=== PATIENT | female | born 1945 | race Caucasian/White ===

== ENCOUNTER 2024-07-21 16:12 | Observation (INO) | payer MEDICARE ==
[2024-07-21 16:31] LABS: Appearance Clear (Clear); Bacteria Few /HPF (None Seen); Bilirubin Negative (Negative); Blood Negative (Negative); Epithelial Cells Few /HPF (None Seen); Glucose, Urine Negative (Negative); Hyaline Casts NONE SEEN /LPF (0-2); Ketones Negative (Negative); Leukocyte Esterase Moderate (Negative); Nitrite Negative (Negative); Ph 5.5 (4.6-8.0); Protein,Urine Dip Negative (Negative); RBC 0-2 /HPF (0-5); WBC 21-50 /HPF (0-5)
[2024-07-21 16:32] LABS: ADD URINE CULTURE? YES (NO)
[2024-07-21] MEDS ORDERED: Ativan 1 MG ONE (16:39)
--- NOTE | 2024-07-21 16:39 | ERPHSYRPT ---
- History of Present Illness Time Seen by Provider: 07/21/24 16:15 Source: patient Exam Limitations: no limitations Patient Subjective Stated Complaint: Pt is confused and angry at her roommate for cancelling her appt at a doctor in [place] and thinks that the appt was here Triage Nursing Assessment: Pt was brought to the ER by law enforcement at her request, hyertensive, denies pain but states that both of her feet are numb, pt states that she was told before that she has severe dementia but she denies having it, pulses normal, skin n/w/d, states that her last intake was this morning, appears confused and angry Physician History: Patient is here with possible altered mental status. Patient is living with a roommate in [place]. States that she just moved from [place] 3 months ago. She has on many different medications but states that her roommate "controls those". States that her roommate is canceling appointments. She did call the police on herself today. She requested that the police take her to the emergency room for evaluation. corporate officer left before I had the opportunity discussed with him. Patient is not under arrest, was not placed an immediate [place] [facility] facility, was not determined to be a harm to herself or others. Patient denies any suicidal, homicidal etiology right now. She denies any chest pain shortness of breath nausea or vomiting. She has appear paranoid on my exam today. Allergies/Adverse Reactions: UNOBTAINABLE Allergy (Unverified 07/21/24 16:37) Home Medications: Atorvastatin Calcium 40 mg PO DAILY 07/21/24 [History] Rivaroxaban [Xarelto] 20 mg PO DAILY 07/21/24 [History] Hx Influenza Vaccination/Date Given: No Hx Pneumococcal Vaccination/Date Given: No Travel Risk - International Travel Have you traveled outside of the country in past 3 weeks: No - Emerging Infectious Disease Are you exhibiting symptoms associated with any current EIDs: No - Past Medical History Pertinent Past Medical History: Yes Neurological History: Dementia Other Medical History: emily lung collapse, unknown about any other health issues - Past Surgical History Past Surgical History: Yes Musculoskeletal: Orthopedic Surgery Other Surgical History: unknown about any other surgeries - Social History Smoking Status: Never smoker Exposure to second hand smoke: No Drug Use: none - Social Determinants of Health Will the patient participate in the screening: Unable to obtain - Nursing Vital Signs Nursing Vital Signs: Initial Vital Signs Temperature 98.1 F 07/21/24 16:15 Pulse Rate 93 H 07/21/24 16:15 Blood Pressure 148/66 07/21/24 16:15 O2 Sat by Pulse Oximetry 98 07/21/24 16:15 Pain Scale Pain Intensity 0 - Physical Exam SpO2: 98 Comments: 07/21/24 16:37 Review of Systems Constitutional: Negative for fever. HENT: Negative for congestion. Respiratory: Negative for shortness of breath. Cardiovascular: Negative for chest pain. Gastrointestinal: Negative for abdominal pain. Genitourinary: Negative for dysuria. Musculoskeletal: Negative for back pain. Skin: Negative for rash. Neurological: Negative for headaches. Psychiatric/Behavioral: Negative for behavioral problems. All other systems reviewed and are negative. Physical Exam Vitals signs and nursing note reviewed. Constitutional: Appearance: Patient is well-developed. HENT: Head: Normocephalic and atraumatic. Eyes: Conjunctiva/sclera: Conjunctivae normal. Neck: Musculoskeletal: Normal range of motion. Trachea: No tracheal deviation. Cardiovascular: Rate and Rhythm: Normal rate. Pulmonary: Effort: Pulmonary effort is normal. No respiratory distress. Abdominal: Palpations: Abdomen is soft. Musculoskeletal: General: No deformity. Skin: General: Skin is warm and dry. Neurological/ Psychiatric: Mental Status: Mental status, behavior is appropriate. She states that she is fearful that her roommate is controlling her medications, expressing paranoia over having doctors appointments canceled by her roommate. She does speak poorly of her roommate in general. No suicidal or homicidal ideation. - Course Nursing assessment & vital signs reviewed: Yes EKG Interpreted by Me: Sinus Rhythm Ordered Tests: Active Orders 24 hr Category Date Time Status Call Admit Doctor for Orders ON ADMISSION Care 07/21/24 18:42 Active Code Status Order ROUTINE Care 07/21/24 18:42 Active EKG-ER Only STAT Care 07/21/24 16:31 Active IV Insertion STAT Care 07/21/24 16:[address] in Observation ROUTINE Care 07/21/24 18:42 Active House Regular Diet Diet 07/22/24 Breakfast Active HEAD WITHOUT CONTRAST [CT] Stat Exams 07/21/24 16:31 Completed ACETAMINOPHEN Stat Lab 07/21/24 16:40 Completed CBC W DIFF Stat Lab 07/21/24 16:40 Completed CK-Creatinine Phosphokinase Stat Lab 07/21/24 16:40 Completed CMP Stat Lab 07/21/24 16:40 Completed CULTURE,URINE Stat Lab 07/21/24 16:24 Received ETHYL ALCOHOL Stat Lab 07/21/24 16:40 Completed SALICYLATE Stat Lab 07/21/24 16:40 Completed TROPONIN Q4H Lab 07/21/24 16:40 Completed TROPONIN Q4H Lab 07/21/24 20:45 Ordered TROPONIN Q4H Lab 07/22/24 00:45 Ordered UA W/RFX UR CULTURE Stat Lab 07/21/24 16:24 Completed Urine Triage Profile Stat Lab 07/21/24 16:36 Completed Transfer Order Routine Transfer 07/21/24 Ordered Medication Summary Discontinued Medications Generic Name Dose Route Start Last Admin Trade Name Ej PRN Reason Stop Dose Admin Ceftriaxone Sodium 1 gm in 100 mls @ 200 mls/hr 07/21/24 17:00 07/21/24 17:45 Rocephin 1 Gm / 100 Ml Nacl IV 07/21/24 17:29 Infused STAT ONE Infusion Ceftriaxone Sodium Confirm 07/21/24 17:05 Rocephin 1 Gm / 100 Ml Nacl Administered 07/21/24 17:06 Dose 1 gm in 100 mls @ ud IV .STK-MED ONE Lorazepam 1 mg 07/21/24 16:31 07/21/24 16:40 Lorazepam 1 Mg Tablet PO 07/21/24 16:32 1 mg STAT ONE Administration Lorazepam Confirm 07/21/24 16:39 Lorazepam 1 Mg Tablet Administered 07/21/24 16:40 Dose 1 mg .ROUTE .STK-MED ONE Lab/Rad Data: Laboratory Result Diagrams 07/21/24 16:40 07/21/24 16:40 Laboratory Results 07/21/24 07/21/24 07/21/24 Range/Units 16:40 16:40 16:40 WBC (3.98-10.04) x10^3/uL RBC (3.93-5.22) x10^6/uL Hgb (11.2-15.7) g/dL Hct (34.1-44.9) % MCV (79.4-94.8) fL MCH (25.6-32.2) pg MCHC (32.2-35.5) g/dL RDW (11.7-14.4) % Plt Count (182-369) x10^3/uL MPV (9.4-12.3) fL Gran % (34.0-71.1) % Immature Gran % (Auto) (0.001-0.429) % Nucleat RBC Rel Count (0.00-0.2) % Eos # (Auto) (0.04-0.36) x10^3/uL Immature Gran # (Auto) (0.001-0.031) x10^3u/L Absolute Lymphs (auto) (1.18-3.74) x10^3/uL Absolute Monos (auto) (0.24-0.86) x10^3/uL Absolute Nucleated RBC (0.00-0.012) x10^3u/L Lymphocytes % (19.3-51.7) % Monocytes % (4.7-12.5) % Eosinophils % (0.7-5.8) % Basophils % (0.1-1.2) % Absolute Granulocytes (1.56-6.13) x10^3/uL Basophils # (0.01-0.08) x10^3/uL Sodium 141 (135-145) mmol/L Potassium 4.0 (3.5-5.1) mmol/L Chloride 104 (98-107) mmol/L Carbon Dioxide 27 (22-30) mmol/L Anion Gap 13.2 (5-15) MEQ/L BUN 27 H (7-17) mg/dL Creatinine 1.02 (0.52-1.04) mg/dL Estimated GFR 56.0 ML/MIN Glucose 127 H (74-106) mg/dL Calcium 9.9 (8.4-10.2) mg/dL Total Bilirubin 0.90 (0.2-1.3) mg/dL AST 37 H (14-36) U/L ALT 23 (0-35) U/L Alkaline Phosphatase 116 (38-126) U/L Creatine Kinase 140 H (30-135) U/L Troponin I < 0.012 (0.000-0.033) ng/mL Serum Total Protein 7.6 (6.3-8.2) g/dL Albumin 4.6 (3.5-5.0) g/dL Urine Color (Yellow) Urine Appearance (Clear) Urine pH (4.6-8.0) Ur Specific [place] (1.005-1.030) Urine Protein (Negative) Urine Glucose (UA) (Negative) mg/dL Urine Ketones (Negative) Urine Blood (Negative) Urine Nitrite (Negative) Urine Bilirubin (Negative) Urine Urobilinogen (0.2) mg/dL Ur Leukocyte Esterase (Negative) U Hyaline Cast (Auto) (0-2) /LPF Urine Microscopic RBC (0-5) /HPF Urine Microscopic WBC (0-5) /HPF Ur Epithelial Cells (None Seen) /HPF Urine Bacteria (None Seen) /HPF Urine Culture Reflexed (NO) Salicylates < 1.0 L (2-20) mg/dL Urine Opiates Level (NEGATIVE) Ur Methadone (NEGATIVE) Acetaminophen < 10 L (10-30) ug/ml Urine Barbiturates (NEGATIVE) Ur Phencyclidine (PCP) (NEGATIVE) Urine Amphetamine (NEGATIVE) U Benzodiazepine Level (NEGATIVE) Urine Cocaine (NEGATIVE) Urine Marijuana (THC) (NEGATIVE) Ethyl Alcohol < 10 (0-10) mg/dL 07/21/24 07/21/24 07/21/24 Range/Units 16:40 16:36 16:24 WBC 6.4 (3.98-10.04) x10^3/uL RBC 5.07 (3.93-5.22) x10^6/uL Hgb 14.8 (11.2-15.7) g/dL Hct 46.2 H (34.1-44.9) % MCV 91.1 (79.4-94.8) fL MCH 29.2 (25.6-32.2) pg MCHC 32.0 L (32.2-35.5) g/dL RDW 14.2 (11.7-14.4) % Plt Count 211 (182-369) x10^3/uL MPV 9.7 (9.4-12.3) fL Gran % 64.4 (34.0-71.1) % Immature Gran % (Auto) 0.2 (0.001-0.429) % Nucleat RBC Rel Count 0.0 (0.00-0.2) % Eos # (Auto) 0.13 (0.04-0.36) x10^3/uL Immature Gran # (Auto) 0.01 (0.001-0.031) x10^3u/L Absolute Lymphs (auto) 1.57 (1.18-3.74) x10^3/uL Absolute Monos (auto) 0.53 (0.24-0.86) x10^3/uL Absolute Nucleated RBC 0.00 (0.00-0.012) x10^3u/L Lymphocytes % 24.6 (19.3-51.7) % Monocytes % 8.3 (4.7-12.5) % Eosinophils % 2.0 (0.7-5.8) % Basophils % 0.5 (0.1-1.2) % Absolute Granulocytes 4.10 (1.56-6.13) x10^3/uL Basophils # 0.03 (0.01-0.08) x10^3/uL Sodium (135-145) mmol/L Potassium (3.5-5.1) mmol/L Chloride (98-107) mmol/L Carbon Dioxide (22-30) mmol/L Anion Gap (5-15) MEQ/L BUN (7-17) mg/dL Creatinine (0.52-1.04) mg/dL Estimated GFR ML/MIN Glucose (74-106) mg/dL Calcium (8.4-10.2) mg/dL Total Bilirubin (0.2-1.3) mg/dL AST (14-36) U/L ALT (0-35) U/L Alkaline Phosphatase (38-126) U/L Creatine Kinase (30-135) U/L Troponin I (0.000-0.033) ng/mL Serum Total Protein (6.3-8.2) g/dL Albumin (3.5-5.0) g/dL Urine Color Yellow (Yellow) Urine Appearance Clear (Clear) Urine pH 5.5 (4.6-8.0) Ur Specific [place] 1.020 (1.005-1.030) Urine Protein Negative (Negative) Urine Glucose (UA) Negative (Negative) mg/dL Urine Ketones Negative (Negative) Urine Blood Negative (Negative) Urine Nitrite Negative (Negative) Urine Bilirubin Negative (Negative) Urine Urobilinogen 1.0 A (0.2) mg/dL Ur Leukocyte Esterase Moderate A (Negative) U Hyaline Cast (Auto) NONE SEEN (0-2) /LPF Urine Microscopic RBC 0-2 (0-5) /HPF Urine Microscopic WBC 21-50 A (0-5) /HPF Ur Epithelial Cells Few (None Seen) /HPF Urine Bacteria Few A (None Seen) /HPF Urine Culture Reflexed YES (NO) Salicylates (2-20) mg/dL Urine Opiates Level NEGATIVE (NEGATIVE) Ur Methadone NEGATIVE (NEGATIVE) Acetaminophen (10-30) ug/ml Urine Barbiturates NEGATIVE (NEGATIVE) Ur Phencyclidine (PCP) NEGATIVE (NEGATIVE) Urine Amphetamine NEGATIVE (NEGATIVE) U Benzodiazepine Level POSITIVE A (NEGATIVE) Urine Cocaine NEGATIVE (NEGATIVE) Urine Marijuana (THC) NEGATIVE (NEGATIVE) Ethyl Alcohol (0-10) mg/dL - Progress Progress: improved Progress Note: 07/21/24 16:38 Differential diagnosis includes electrolyte abnormality, infection, mental health issue, brain tumor, head bleed, other acute metabolic encephalopathy. Plan for basic labs, head CT, UDS, psych workup, EKG. 07/21/24 18:35 Patient may have a mild UTI on UA. We did give a dose of Rocephin here. Patient still appears very confused. She is unsure of what medication she is on. Patient is on Xarelto and statin per us: The pharmacy. She does not know why these medications are medications that she takes. She does not know if she has A-fib or other cardiac issue. Head CT shows no signs of trauma, subdural. 07/21/24 18:43 Dr. Wong was contacted for admission. We discussed the case in detail. He will admit the patient to his service. Counseled pt/family regarding: lab results, diagnosis, need for follow-up, rad results - Departure Departure Disposition: Observation Clinical Impression: Acute metabolic encephalopathy, UTI (urinary tract infection), Paranoia Condition: Stable Critical Care Time: No Referrals: DOCTOR,NO FAMILY [Primary Care Provider] - Follow up/PCP as directed
[2024-07-21] MEDS: Ativan 1 MG PO ONE (16:40)
[2024-07-21 17:04] LABS: BASOPHIL % 0.5 % (0.1-1.2); Basophil (Absolute #) 0.03 x10^3/uL (0.01-0.08); Eosinophil (Absolute #) 0.13 x10^3/uL (0.04-0.36); Hematocrit 46.2 % (34.1-44.9); Hemoglobin 14.8 g/dL (11.2-15.7); IMMATURE GRAN # 0.01 x10^3u/L (0.001-0.031); IMMATURE GRAN % 0.2 % (0.001-0.429); Lymphocyte (Absolute #) 1.57 x10^3/uL (1.18-3.74); Lymphocytes % 24.6 % (19.3-51.7); Mean Cell Volume 91.1 fL (79.4-94.8); Mean Corpuscular Hemoglobin 29.2 pg (25.6-32.2); Mean Platelet Volume 9.7 fL (9.4-12.3); Monocyte (Absolute #) 0.53 x10^3/uL (0.24-0.86); Monocytes % 8.3 % (4.7-12.5); Neutrophil % 64.4 % (34.0-71.1); Platelet Count 211 x10^3/uL (182-369); Red Blood Count 5.07 x10^6/uL (3.93-5.22); Red Cell Distribution Width 14.2 % (11.7-14.4); White Blood Count 6.4 x10^3/uL (3.98-10.04)
[2024-07-21] MEDS ORDERED: ROCEPHIN 1 GM / 100 ML NaCl 1 GM/100 ML IVPB IV ONE (17:05)
[2024-07-21] MEDS: ROCEPHIN 1 GM / 100 ML NaCl 1 GM/100 ML IVPB IV ONE (17:07)
--- NOTE | 2024-07-21 17:12 | XRAY ---
Indication: Altered mental status. Multiple contiguous axial images obtained through the head without contrast. Comparison: None Normal appearing brain parenchyma, ventricles, and bony calvarium for patient's age. Near-complete mucoperiosteal thickening right sphenoid sinus. Remaining visualized paranasal sinuses and mastoid air cells are clear. Impression: Paranasal disease. Remaining CT head without contrast exam is normal.
[2024-07-21 17:22] LABS: ACETAMINOPHEN < 10 ug/ml (10-30); ALBUMIN 4.6 g/dL (3.5-5.0); ALKALINE PHOSPHATASE 116 U/L (38-126); ANION GAP 13.2 MEQ/L (5-15); BLOOD UREA NITROGEN 27 mg/dL (7-17); CHLORIDE 104 mmol/L (98-107); Calcium 9.9 mg/dL (8.4-10.2); Carbon Dioxide 27 mmol/L (22-30); Creatinine 1 1.02 mg/dL (0.52-1.04); ETHYL ALCOHOL < 10 mg/dL (0-10); Glucose 127 mg/dL (74-106); SALICYLATE < 1.0 mg/dL (2-20); SGOT/AST 37 U/L (14-36); SGPT/ALT 23 U/L (0-35); SODIUM 141 mmol/L (135-145); Total Protein 7.6 g/dL (6.3-8.2)
[2024-07-21 18:32] LABS: Amphetamine,Urine NEGATIVE (NEGATIVE); Barbiturate,Urine NEGATIVE (NEGATIVE); Benzodiazepine,Urine POSITIVE (NEGATIVE); Cocaine,Urine NEGATIVE (NEGATIVE); Methadone,Urine NEGATIVE (NEGATIVE); Opiate,Urine NEGATIVE (NEGATIVE); PCP,Urine NEGATIVE (NEGATIVE); THC,Urine NEGATIVE (NEGATIVE)
[2024-07-21] MEDS ORDERED: Ativan 2 MG/1 ML VIAL ONE ×2 (19:32→20:50)
[2024-07-21] MEDS: Ativan 2 MG/1 ML VIAL IV ONE ×2 (19:41→20:51)
[2024-07-21] MEDS ORDERED: Zofran 4 MG/2 ML VIAL IV PRN (22:34)
--- NOTE | 2024-07-21 22:52 | PCM.HP ---
History of Present Illness - Chief Complaint Chief Complaint: Acute metabolic encephalopathy Date: 07/21/24 History of Present Illness: is a 79 year old female who was brought to the hospital by law enforcement for confusion, which was self reported by the patient to police. The patient is a poor historian and is on anticoagulation and cholesterol medications, but does not know why she is on blood thinners. During my assessment she is oriented to name only (not location or date). She reported bilateral foot numbness and also expressed concerns that her roommate is canceling her appointments. She recently moved from [place] 3 months ago. She has on many different medications but states that her roommate "controls those". Per police, the patient was not under custody and was not determined to be a harm to herself or others. Patient denies any suicidal and homicidal ideations. She denies any chest pain shortness of breath nausea or vomiting. In the ED the patient's workup was negative other than a possible UTI, and she has been admitted for further observation and treatment. - Review of Systems Constitutional: No Symptoms Eyes: No Symptoms Ears, Nose, & Throat: No Symptoms Respiratory: No Symptoms Cardiac: No Symptoms Abdominal/Gastrointestinal: No Symptoms Genitourinary Symptoms: No Symptoms Musculoskeletal: No Symptoms Skin: No Symptoms Neurological: No Symptoms Psychological: No Symptoms Endocrine: No Symptoms Hematologic/Lymphatic: No Symptoms Immunological/Allergic: No Symptoms All Other Systems: Reviewed and Negative Medications & Allergies Home Medications: Home Medication List Atorvastatin Calcium 40 mg PO DAILY 07/21/24 [History Confirmed 07/21/24] Rivaroxaban [Xarelto] 20 mg PO DAILY 07/21/24 [History Confirmed 07/21/24] Allergies/Adverse Reactions: Allergies Allergy/AdvReac Type Severity Reaction Status Date / Time UNOBTAINABLE Allergy Unverified 07/21/24 16:37 - Past Medical History Past Medical History: Yes Neurological History: Dementia, Peripheral Neuropathy ENT History: No Pertinent History Cardiac History: No Pertinent History Respiratory History: No Pertinent History Endocrine Medical History: No Pertinent History Musculoskelatal History: No Pertinent History GI Medical History: No Pertinent History History: No Pertinent History Pyscho-Social History: No Pertinent History Reproductive Disorders: No Pertinent History Comment: emily lung collapse, unknown about any other health issues, unable to obtain at this time - Past Surgical History Past Surgical History: Yes Neuro Surgical History: No Pertinent History Cardiac History: No Pertinent History Respiratory Surgery: No Pertinent History GI Surgical History: No Pertinent History Genitourinary Surgical Hx: No Pertinent History Musculskeletal Surgical Hx: Orthopedic Surgery Female Surgical History: No Pertinent History Other Surgical History: unknown about any other surgeries - Social History Smoking Status: Never smoker Exposure to second hand smoke: No Alcohol: None Drug Use: none - Social Determinants of Health Will the patient participate in the screening: Unable to obtain - Physical Exam Vital Signs: Vital Signs - 24 hr Temp Pulse Resp BP BP Pulse Ox 07/21/24 21:02 77 16 175/88 97 07/21/24 20:14 72 18 167/55 99 07/21/24 18:44 98 07/21/24 16:34 168/77 07/21/24 16:33 98 07/21/24 16:16 148/66 07/21/24 16:15 98.1 F 93 H 148/66 98 General Appearance: alert Neurologic Exam: alert, cooperative, automatic seamer II-XII nml as tested, nml cerebellar function, disoriented, confusion Eye Exam: PERRL/EOMI, eyes nml inspection Ears, Nose, Throat Exam: normal ENT inspection Neck Exam: normal inspection, supple Respiratory Exam: normal breath sounds, lungs clear Cardiovascular Exam: regular rate/rhythm, normal heart sounds Gastrointestinal/Abdomen Exam: soft, normal bowel sounds Back Exam: normal range of motion Extremity Exam: normal inspection, normal range of motion Skin Exam: normal color Results - Labs Lab/Micro Results: Lab Results-Last 24 Hours 07/21/24 07/21/24 07/21/24 Range/Units 16:24 16:36 16:40 WBC 6.4 (3.98-10.04) x10^3/uL RBC 5.07 (3.93-5.22) x10^6/uL Hgb 14.8 (11.2-15.7) g/dL Hct 46.2 H (34.1-44.9) % MCV 91.1 (79.4-94.8) fL MCH 29.2 (25.6-32.2) pg MCHC 32.0 L (32.2-35.5) g/dL RDW 14.2 (11.7-14.4) % Plt Count 211 (182-369) x10^3/uL MPV 9.7 (9.4-12.3) fL Gran % 64.4 (34.0-71.1) % Immature Gran % (Auto) 0.2 (0.001-0.429) % Nucleat RBC Rel Count 0.0 (0.00-0.2) % Eos # (Auto) 0.13 (0.04-0.36) x10^3/uL Immature Gran # (Auto) 0.01 (0.001-0.031) x10^3u/L Absolute Lymphs (auto) 1.57 (1.18-3.74) x10^3/uL Absolute Monos (auto) 0.53 (0.24-0.86) x10^3/uL Absolute Nucleated RBC 0.00 (0.00-0.012) x10^3u/L Lymphocytes % 24.6 (19.3-51.7) % Monocytes % 8.3 (4.7-12.5) % Eosinophils % 2.0 (0.7-5.8) % Basophils % 0.5 (0.1-1.2) % Absolute Granulocytes 4.10 (1.56-6.13) x10^3/uL Basophils # 0.03 (0.01-0.08) x10^3/uL Sodium (135-145) mmol/L Potassium (3.5-5.1) mmol/L Chloride (98-107) mmol/L Carbon Dioxide (22-30) mmol/L Anion Gap (5-15) MEQ/L BUN (7-17) mg/dL Creatinine (0.52-1.04) mg/dL Estimated GFR ML/MIN Glucose (74-106) mg/dL Calcium (8.4-10.2) mg/dL Total Bilirubin (0.2-1.3) mg/dL AST (14-36) U/L ALT (0-35) U/L Alkaline Phosphatase (38-126) U/L Creatine Kinase (30-135) U/L Troponin I (0.000-0.033) ng/mL Serum Total Protein (6.3-8.2) g/dL Albumin (3.5-5.0) g/dL Urine Color Yellow (Yellow) Urine Appearance Clear (Clear) Urine pH 5.5 (4.6-8.0) Ur Specific [place] 1.020 (1.005-1.030) Urine Protein Negative (Negative) Urine Glucose (UA) Negative (Negative) mg/dL Urine Ketones Negative (Negative) Urine Blood Negative (Negative) Urine Nitrite Negative (Negative) Urine Bilirubin Negative (Negative) Urine Urobilinogen 1.0 A (0.2) mg/dL Ur Leukocyte Esterase Moderate A (Negative) U Hyaline Cast (Auto) NONE SEEN (0-2) /LPF Urine Microscopic RBC 0-2 (0-5) /HPF Urine Microscopic WBC 21-50 A (0-5) /HPF Ur Epithelial Cells Few (None Seen) /HPF Urine Bacteria Few A (None Seen) /HPF Urine Culture Reflexed YES (NO) Salicylates (2-20) mg/dL Urine Opiates Level NEGATIVE (NEGATIVE) Ur Methadone NEGATIVE (NEGATIVE) Acetaminophen (10-30) ug/ml Urine Barbiturates NEGATIVE (NEGATIVE) Ur Phencyclidine (PCP) NEGATIVE (NEGATIVE) Urine Amphetamine NEGATIVE (NEGATIVE) U Benzodiazepine Level POSITIVE A (NEGATIVE) Urine Cocaine NEGATIVE (NEGATIVE) Urine Marijuana (THC) NEGATIVE (NEGATIVE) Ethyl Alcohol (0-10) mg/dL 07/21/24 07/21/24 07/21/24 Range/Units 16:40 16:40 16:40 WBC (3.98-10.04) x10^3/uL RBC (3.93-5.22) x10^6/uL Hgb (11.2-15.7) g/dL Hct (34.1-44.9) % MCV (79.4-94.8) fL MCH (25.6-32.2) pg MCHC (32.2-35.5) g/dL RDW (11.7-14.4) % Plt Count (182-369) x10^3/uL MPV (9.4-12.3) fL Gran % (34.0-71.1) % Immature Gran % (Auto) (0.001-0.429) % Nucleat RBC Rel Count (0.00-0.2) % Eos # (Auto) (0.04-0.36) x10^3/uL Immature Gran # (Auto) (0.001-0.031) x10^3u/L Absolute Lymphs (auto) (1.18-3.74) x10^3/uL Absolute Monos (auto) (0.24-0.86) x10^3/uL Absolute Nucleated RBC (0.00-0.012) x10^3u/L Lymphocytes % (19.3-51.7) % Monocytes % (4.7-12.5) % Eosinophils % (0.7-5.8) % Basophils % (0.1-1.2) % Absolute Granulocytes (1.56-6.13) x10^3/uL Basophils # (0.01-0.08) x10^3/uL Sodium 141 (135-145) mmol/L Potassium 4.0 (3.5-5.1) mmol/L Chloride 104 (98-107) mmol/L Carbon Dioxide 27 (22-30) mmol/L Anion Gap 13.2 (5-15) MEQ/L BUN 27 H (7-17) mg/dL Creatinine 1.02 (0.52-1.04) mg/dL Estimated GFR 56.0 ML/MIN Glucose 127 H (74-106) mg/dL Calcium 9.9 (8.4-10.2) mg/dL Total Bilirubin 0.90 (0.2-1.3) mg/dL AST 37 H (14-36) U/L ALT 23 (0-35) U/L Alkaline Phosphatase 116 (38-126) U/L Creatine Kinase 140 H (30-135) U/L Troponin I < 0.012 (0.000-0.033) ng/mL Serum Total Protein 7.6 (6.3-8.2) g/dL Albumin 4.6 (3.5-5.0) g/dL Urine Color (Yellow) Urine Appearance (Clear) Urine pH (4.6-8.0) Ur Specific [place] (1.005-1.030) Urine Protein (Negative) Urine Glucose (UA) (Negative) mg/dL Urine Ketones (Negative) Urine Blood (Negative) Urine Nitrite (Negative) Urine Bilirubin (Negative) Urine Urobilinogen (0.2) mg/dL Ur Leukocyte Esterase (Negative) U Hyaline Cast (Auto) (0-2) /LPF Urine Microscopic RBC (0-5) /HPF Urine Microscopic WBC (0-5) /HPF Ur Epithelial Cells (None Seen) /HPF Urine Bacteria (None Seen) /HPF Urine Culture Reflexed (NO) Salicylates < 1.0 L (2-20) mg/dL Urine Opiates Level (NEGATIVE) Ur Methadone (NEGATIVE) Acetaminophen < 10 L (10-30) ug/ml Urine Barbiturates (NEGATIVE) Ur Phencyclidine (PCP) (NEGATIVE) Urine Amphetamine (NEGATIVE) U Benzodiazepine Level (NEGATIVE) Urine Cocaine (NEGATIVE) Urine Marijuana (THC) (NEGATIVE) Ethyl Alcohol < 10 (0-10) mg/dL - Radiology Impressions Radiology Exams & Impressions: Radiology Procedures Category Date Time Status HEAD WITHOUT CONTRAST [CT] Stat Exams 07/21/24 16:31 Completed Assessment/Plan (1) Acute metabolic encephalopathy Current Visit: Yes Status: Acute Assessment & Plan: Possibly due to dehydration and UTI. Will need to monitor response to treatment (IV fluids and IV antibiotics). CT head negative. CPK mildly elevated. Will recheck in AM to trend. Code(s): G93.41 - METABOLIC ENCEPHALOPATHY (2) UTI (urinary tract infection) Current Visit: Yes Status: Acute Assessment & Plan: Treat with IV antibiotics. Follow culture. Code(s): N39.0 - URINARY TRACT INFECTION, SITE NOT SPECIFIED (3) Paranoia Current Visit: Yes Status: Acute Assessment & Plan: For now the consideration is metabolic encephalopathy, but the patient my require psychiatric evaluation if the patient's mental status does not improve. Patient is reporting potential paranoia, without suicidal/homicidal ideations. Code(s): F22 - DELUSIONAL DISORDERS (4) Hyperlipidemia Current Visit: Yes Status: Acute Assessment & Plan: Continue statin. Code(s): E78.5 - HYPERLIPIDEMIA, UNSPECIFIED (5) Anticoagulant long-term use Current Visit: Yes Status: Acute Assessment & Plan: Continue current anticoagulant. May need to investigate in AM who the prescribing provider was in order to obtain additional medical records. 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 Written or verbal consent was obtained from the patient/guardian to perform this visit usingsynchronoustelemedicine technology. Any patient questions regarding the telemedicine interaction were answered.
[2024-07-21] MEDS: Sodium Chloride 0.9% 1000 ML 1,000 ML IV SCH (23:05)
[2024-07-21] MEDS: ROCEPHIN 1 GM / 100 ML NaCl 1 GM/100 ML IVPB IV SCH (23:25)
[2024-07-22] MEDS: Ativan 2 MG/1 ML VIAL IV PRN (00:01)
[2024-07-22] MEDS ORDERED: STERILE WATER FOR INJECTION 20 ML 20 ML ONE (07:43)
[2024-07-22] MEDS: Geodon 20 MG INJ IM ONE ×2 (07:44→19:42)
[2024-07-22] MEDS ORDERED: MEDICATION INTERVENTION MC SCH (08:15)
[2024-07-22 08:33] LABS: ALBUMIN 4.3 g/dL (3.5-5.0); ANION GAP 11.6 MEQ/L (5-15); BILIRUBIN,TOTAL 1.1 mg/dL (0.2-1.3); Calcium 9.5 mg/dL (8.4-10.2); Creatinine 1 0.74 mg/dL (0.52-1.04); EST GLOMERULAR FILTRATION RATE 82.3 ML/MIN; Potassium 3.5 mmol/L (3.5-5.1); Total Protein 7.1 g/dL (6.3-8.2)
[2024-07-22 09:41] LABS: Absolute Neutrophil Ct (ANC) 4.23 x10^3/uL (1.56-6.13); BASOPHIL % 0.5 % (0.1-1.2); Basophil (Absolute #) 0.03 x10^3/uL (0.01-0.08); Eosinophil % 0.5 % (0.7-5.8); Eosinophil (Absolute #) 0.03 x10^3/uL (0.04-0.36); Hematocrit 44.4 % (34.1-44.9); Hemoglobin 14.3 g/dL (11.2-15.7); IMMATURE GRAN # 0.01 x10^3u/L (0.001-0.031); IMMATURE GRAN % 0.2 % (0.001-0.429); Lymphocyte (Absolute #) 1.08 x10^3/uL (1.18-3.74); Lymphocytes % 18.7 % (19.3-51.7); Mean Cell Volume 89.9 fL (79.4-94.8); Mean Corpuscular Hemoglobin 28.9 pg (25.6-32.2); Mean Corpuscular Hgb Concent. 32.2 g/dL (32.2-35.5); Mean Platelet Volume 9.8 fL (9.4-12.3); Monocyte (Absolute #) 0.41 x10^3/uL (0.24-0.86); Monocytes % 7.1 % (4.7-12.5); Platelet Count 196 x10^3/uL (182-369); Red Blood Count 4.94 x10^6/uL (3.93-5.22); Red Cell Distribution Width 14.2 % (11.7-14.4); White Blood Count 5.8 x10^3/uL (3.98-10.04)
[2024-07-22] MEDS ORDERED: NON-FORMULARY ITEM (Progesterone, Micronized [Progesterone] 100 MG Capsule) PO SCH (10:00)
[2024-07-22] MEDS ORDERED: LIPITOR 40MG PO SCH (10:00)
[2024-07-22] MEDS ORDERED: NON-FORMULARY ITEM (Rivaroxaban [Xarelto] 20 MG Tablet) PO SCH (10:00)
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
[2024-07-22] MEDS: XARELTO 10 MG TABLET PO SCH (12:30)
[2024-07-22] MEDS: Aldactone 25 MG PO SCH (12:30)
[2024-07-22] MEDS: Acidophilus TABLET PO SCH (12:30)
[2024-07-22] MEDS: Proscar 5 MG PO SCH (12:31)
[2024-07-22] MEDS ORDERED: ROCEPHIN 1 GM / 100 ML NaCl 1 GM/100 ML IVPB IV SCH (17:00)
[2024-07-22] MEDS ORDERED: Ativan 2 MG/1 ML VIAL ONE (20:05)
[2024-07-22] MEDS: Ativan 2 MG/1 ML VIAL IM ONE ×2 (20:12→20:58)
[2024-07-22] MEDS: ZOCOR 20MG PO SCH (23:19)
[2024-07-23] MEDS: COREG 12.5 MG PO SCH (11:10)
[2024-07-23] MEDS: Docusate Sodium 100 MG PO PRN (12:13)
[2024-07-23 12:31] LABS: ALBUMIN 4.1 g/dL (3.5-5.0); ANION GAP 14.7 MEQ/L (5-15); BILIRUBIN,TOTAL 1.1 mg/dL (0.2-1.3); Calcium 9.4 mg/dL (8.4-10.2); Creatinine 1 0.82 mg/dL (0.52-1.04); EST GLOMERULAR FILTRATION RATE 72.7 ML/MIN; PREALBUMIN 18.85 mg/dL (17.6-36.0); Potassium 3.7 mmol/L (3.5-5.1); Total Protein 6.8 g/dL (6.3-8.2)
[2024-07-23 12:35] LABS: Hemoglobin 14.2 g/dL (11.2-15.7); Mean Cell Volume 91.8 fL (79.4-94.8); Mean Corpuscular Hgb Concent. 31.6 g/dL (32.2-35.5); Mean Platelet Volume 9.7 fL (9.4-12.3); Platelet Count 208 x10^3/uL (182-369); Red Cell Distribution Width 14.6 % (11.7-14.4); White Blood Count 7.1 x10^3/uL (3.98-10.04)
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
[2024-07-23] MEDS ORDERED: Geodon 20 MG INJ IM PRN (14:30)
[2024-07-23] MEDS: xanAX 0.25 MG PO PRN (16:18)
[2024-07-24] MEDS: Miralax Powder 17GM PACKET PO SCH (09:11)
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
[2024-07-24 12:27] LABS: Hematocrit 43.2 % (34.1-44.9); Hemoglobin 13.8 g/dL (11.2-15.7); Mean Cell Volume 92.5 fL (79.4-94.8); Mean Corpuscular Hemoglobin 29.6 pg (25.6-32.2); Mean Corpuscular Hgb Concent. 31.9 g/dL (32.2-35.5); Mean Platelet Volume 9.4 fL (9.4-12.3); Platelet Count 201 x10^3/uL (182-369); Red Blood Count 4.67 x10^6/uL (3.93-5.22); Red Cell Distribution Width 14.3 % (11.7-14.4); White Blood Count 8.6 x10^3/uL (3.98-10.04)
[2024-07-24 12:35] LABS: ALBUMIN 3.9 g/dL (3.5-5.0); ANION GAP 11.9 MEQ/L (5-15); BILIRUBIN,TOTAL 0.9 mg/dL (0.2-1.3); Calcium 9.4 mg/dL (8.4-10.2); Creatinine 1 0.83 mg/dL (0.52-1.04); EST GLOMERULAR FILTRATION RATE 71.7 ML/MIN; Potassium 4.3 mmol/L (3.5-5.1); Total Protein 6.7 g/dL (6.3-8.2)
[2024-07-25 06:38] LABS: Hemoglobin 13.1 g/dL (11.2-15.7); Mean Cell Volume 90.5 fL (79.4-94.8); Mean Corpuscular Hemoglobin 28.9 pg (25.6-32.2); Platelet Count 178 x10^3/uL (182-369); Red Blood Count 4.53 x10^6/uL (3.93-5.22); White Blood Count 6.1 x10^3/uL (3.98-10.04)
[2024-07-25 06:53] LABS: ALBUMIN 3.7 g/dL (3.5-5.0); ANION GAP 10.4 MEQ/L (5-15); BILIRUBIN,TOTAL 0.7 mg/dL (0.2-1.3); Calcium 9.4 mg/dL (8.4-10.2); Creatinine 1 0.85 mg/dL (0.52-1.04); EST GLOMERULAR FILTRATION RATE 69.7 ML/MIN; Potassium 4.1 mmol/L (3.5-5.1); Total Protein 6.4 g/dL (6.3-8.2)
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
[2024-07-25] MEDS ORDERED: Geodon 20 MG INJ IM PRN (15:48)
[2024-07-25] MEDS: Aricept 10 MG PO SCH (16:07)
[2024-07-25 16:41] LABS: Hematocrit 42.3 % (34.1-44.9); Hemoglobin 13.8 g/dL (11.2-15.7)
[2024-07-25] MEDS: Risperdal 1 MG PO SCH (20:42)
[2024-07-26 05:59] LABS: Hematocrit 39.8 % (34.1-44.9); Hemoglobin 12.8 g/dL (11.2-15.7)
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
[2024-07-26] MEDS: OCEAN Nasal Spray NS SCH (16:01)
[2024-07-26] MEDS: DESYREL 50 MG PO SCH (21:56)
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
[2024-07-27 08:01] LABS: Hematocrit 42.2 % (34.1-44.9); Hemoglobin 13.7 g/dL (11.2-15.7)
[2024-07-27] MEDS: TYLENOL 325 MG PO PRN (12:03)
--- NOTE | 2024-07-28 04:59 | PCM.NOTE ---
Date and Time: 07/28/24 6706 Subjective Assessment: is a 79 year old female (poor historian) with a chart pmhx of advanced dementia and PE who presented to ED 07/21/24 after she was brought to the ER by law enforcement at her request. Patient has recently moved from [place] with roommate three months ago. Upon arrival she was angry at the roommate for c anceling her doctor appointment. Patient was admitted after exhibiting confused and paranoid behaviors. UA was suspicious for UTI, however culture was negative. Roommate states patient is no longer welcome at her home. During hospitalization, patient continued with abusive and paranoid behaviors. CM was working on [facility] -Unfortunately due to insurance she does not qualify for [facility] placement. Patient has met with [facility] mental health provider who recommended - stop xanax, Start risperdal 0.5 BID, change geodon to 10mg IM Q8 PRN for aggression. Then start Trazadone 50mg at HS. Sunday start Aricept 5mg daily. Then Sunday start Namenda 10mg BID. These changes have made noted improvement with patients behavior. Labs and vitals have remained stable. Grandson is picking up patient this week. 07/28/24: Met with patient bedside. Remains pleasantly confused. No complaints this morning. Understands that she is in the hospital and that her grandson is on his way to pick her up but then stated [place] No reports of aggressive outbursts. Namenda to start today per [facility] recs. Denies fever,cough, sob, cp, abdominal pain, HARGROVE, dizziness, N/V/D. <MARILEE DAVIDSON - Last Filed: 07/28/24 08:09> Date and Time: 07/28/241951 <KAYLAN SIMMONS - Last Filed: 07/28/24 19:54> - Review of Systems Constitutional: No Symptoms Eyes: No Symptoms Ears, Nose, & Throat: No Symptoms Respiratory: No Symptoms Cardiac: No Symptoms Abdominal/Gastrointestinal: No Symptoms Genitourinary Symptoms: No Symptoms Musculoskeletal: No Symptoms Skin: No Symptoms Neurological: No Symptoms Psychological: Memory Loss Endocrine: No Symptoms Hematologic/Lymphatic: No Symptoms Immunological/Allergic: No Symptoms <MARILEE DAVIDSON - Last Filed: 07/28/24 08:09> Objective Exam General Appearance: no apparent distress Neurologic Exam: alert, cooperative, disoriented, confusion Skin Exam: normal color Wound Assessment: Skin/Wound Assessment Wound/Incision Assessment Start: 07/21/24 22:56 Text: Status: Active Freq: Q6H Protocol: Document 07/27/24 20:00 TC (Rec: 07/27/24 20:11 TC [id number]) Wound/Incision Assessment Right Arm Wound Assessment Shift Assessment Wound Type Skin Tear Wound Stage Non Pressure Wound Dressing Status Dry & Intact Primary Dressing MEPILEX BORDER DRESSING Left Elbow Wound Assessment Shift Assessment Wound Type Abrasion Wound Stage Non Pressure Wound General Appearance Open to air,Clean/Dry Comment Healing abrasion open to air, no drainage noted Wound Photo Photo Taken No Eye Exam: PERRL Ears, Nose, Throat Exam: normal ENT inspection Neck Exam: normal inspection Respiratory Exam: normal breath sounds, lungs clear Cardiovascular Exam: regular rate/rhythm, normal heart sounds Gastrointestinal/Abdomen Exam: soft, normal bowel sounds Extremity Exam: normal inspection Back Exam: normal inspection Pelvic Exam: deferred Rectal Exam: deferred <MARILEE DAVIDSON - Last Filed: 07/28/24 08:09> Wound Assessment: Skin/Wound Assessment Wound/Incision Assessment Start: 07/21/24 22:56 Text: Status: Active Freq: Q6H Protocol: Document 07/28/24 14:00 RDUHNE (Rec: 07/28/24 17:01 RDUHNE [id number]) Wound/Incision Assessment Right Arm Wound Assessment Shift Assessment Wound Type Skin Tear Wound Stage Non Pressure Wound Dressing Status Dry & Intact Primary Dressing MEPILEX BORDER DRESSING Left Elbow Wound Assessment Shift Assessment Wound Type Abrasion Wound Stage Non Pressure Wound General Appearance Open to air,Clean/Dry Comment Healing abrasion open to air, no drainage noted Wound Photo Photo Taken No <KAYLAN SIMMONS - Last Filed: 07/28/24 19:54> Objective Data Vital Signs: Vital Signs - 24 hr Temp Pulse Resp BP Pulse Ox 07/27/24 20:00 98.0 F 63 18 150/67 95 07/27/24 16:00 97.3 F 72 17 134/64 99 07/27/24 11:24 97.5 F 70 16 104/57 95 07/27/24 06:44 98.4 F 71 19 118/56 96 Pain Assessment - Last Documented Pain Intensity 0 Pain Scale Used 0-10 Pain Scale Intake and Output: Intake & Output 07/25/24 07/26/24 07/27/24 07/28/24 11:59 11:59 11:59 11:59 Intake Total 1100 480 450 900 Balance 1100 480 450 900 Lab Results: Lab Results-Last 24 Hours 07/27/24 Range/Units 07:45 Hgb 13.7 (11.2-15.7) g/dL Hct 42.2 (34.1-44.9) % <MARILEE DAVIDSON - Last Filed: 07/28/24 08:09> Vital Signs: Vital Signs - 24 hr Temp Pulse Resp BP Pulse Ox 07/28/24 19:20 97.8 F 68 16 127/58 95 07/28/24 16:00 97.7 F 77 18 163/75 96 07/28/24 11:57 98.4 F 69 18 121/58 97 07/28/24 08:00 98.9 F 64 16 109/58 94 L 07/28/24 04:00 16 07/27/24 20:00 98.0 F 63 18 150/67 95 Pain Assessment - Last Documented Pain Intensity 0 Pain Scale Used FLACC Intake and Output: Intake & Output 07/26/24 07/27/24 07/28/24 07/29/24 11:59 11:59 11:59 11:59 Intake Total 773 476 7034 120 Balance 390 847 1977 120 Multi-Disciplinary Progress Notes: Multi-Disciplinary Progress Notes 07/28/24 11:47 Case Management Note by Rebecca Durham S/W SON ALESHA- HE REPORTS HIS SON CAROLE ([phone]) IS FLYING IN 07/30 TO GET PATIENT. THEIR RETURNING FLIGHT IS 08/01. HE IS UNSURE EXACTLY WHAT DATE CAROLE WILL BE HERE TO GET PATIENT D/T UNSURE OF FLIGHT TIME ON 07/30. HE WAS ALSO NOTIFIED OF CLAIMS OF POSSIBLE FINANCIAL ABUSE BY [employer]- HE STATED ALL OF THAT WAS INVESTIGATED AND UNSUPPORTED. S/W SISTER GLORIA- SHE WAS NOTIFIED THAT WE WOULD APPRECIATE HAVING HER PERSO NAL BELONGINGS AND HER MEDS BROUGHT IN SO WE CAN MAKE SURE SHE HAS WHAT SHE NEEDS TO GET HER THRU UNTIL SHE IS BACK IN [place]. SHE STATED THAT SANDI PLANNED TO VISIT TODAY AND COULD BRING THEM THEN. I ADVISED GLORIA THAT SANDI SHOULD NOT VISIT PATIENT THIS WILL LIKELY UPSET PATIENT. SHE VERIFIED UNDERSTANDING AND STATED SHE WOULD SEE WHAT THEY COULD ABOUT GETTING HER STUFF UP HERE TO [facility] Initialized on 07/28/24 11:47 - END OF NOTE <KAYLAN SIMMONS - Last Filed: 07/28/24 19:54> Assessment/Plan (1) Paranoia Current Visit: Yes Status: Acute Assessment & Plan: -Does not meet criteria for [id number] per [facility] psych evaluation -[facility] evaluated patient with the following recs: stop xanax, Start risperdal 0.5 BID, change geodon to 10mg IM Q8 PRN for aggression. Tomorrow start Trazadone 50mg at HS. Sunday start Aricept 5mg daily. Then Sunday start Namenda 10mg BID -Remains pleasantly confused, no aggressive outburst per nursing - improved with new medication changes Code(s): F22 - DELUSIONAL DISORDERS (2) Advanced dementia Current Visit: Yes Status: Chronic Assessment & Plan: -Namenda/aricept initiated per [facility] recommendations - chronic Code(s): F03.C0 - UNSPECIFIED DEMENTIA, SEVERE, WITHOUT BEH/PSYCH/MOOD/ANX (3) Anticoagulant long-term use Current Visit: Yes Status: Chronic Assessment & Plan: -On Xarelto for PE in LLL diagnosed 06/17/24 at [facility], will continue Code(s): Z79.01 - [facility] (CURRENT) USE OF ANTICOAGULANTS (4) Hyperlipidemia Current Visit: Yes Status: Chronic Assessment & Plan: -Continue Statin Code(s): E78.5 - HYPERLIPIDEMIA, UNSPECIFIED (5) Pulmonary embolism Current Visit: Yes Status: Chronic Qualifiers: Pulmonary embolism type: other Chronicity: chronic Acute cor pulmonale presence: without acute cor pulmonale Qualified Code(s): I27.82 - Chronic pulmonary embolism Assessment & Plan: -Continue Xarelto - see anticoagulant above Code(s): I26.99 - OTHER PULMONARY EMBOLISM WITHOUT ACUTE COR PULMONALE (6) Acute metabolic encephalopathy Current Visit: Yes Status: Resolved Assessment & Plan: -Ruled out - Ucult negative for UTI Code(s): G93.41 - METABOLIC ENCEPHALOPATHY (7) Elevated CK Current Visit: Yes Status: Resolved Assessment & Plan: - 2:2 agitation -Resolved (8) UTI (urinary tract infection) Current Visit: Yes Status: Resolved Assessment & Plan: -Ucult negative Code(s): N39.0 - URINARY TRACT INFECTION, SITE NOT SPECIFIED (9) Nasal bleeding Current Visit: Yes Status: Acute Assessment & Plan: - ice pack PRN - nose bleed x3 / - nose bleed x2 /14 - saline nasal spray added - H&H- trend - stable - no overnight bleeding VTE: Xarelto Next of KIN: Sandi Carpio [phone]- Child D/C plan: awaiting grandson to picker feeder pt Code status: Full Code(s): R04.0 - EPISTAXIS <MARILEE DAVIDSON - Last Filed: 07/28/24 08:09> ERIN Encounter - ERIN Encounter Attestation ERIN Encounter Attestation: "IhavepersonallyseenandexamineTorres,MARIBEL FUENTES andhavediscussed pertinent aspects of their care with Marilee Villegas agree with the history, physical exam (any modifications based on my personal exam will be noted below), assessment, and plan as outlined in original note. Please see immediately below for my summary of findings and additional assessment and plan along with any meaningful corrections/explanations to the Subjective/Objective portions of the ERIN note will be noted." My portion of the encounter took place via telemedicine. -Patient with dementia with behavioral disturbances and paranoia. Improved since initiation of psych meds and calm today with no agitation noted. Mostly concerned about her facial hair. Currently awaiting grandson to come and take her back to [place]. <KAYLAN SIMMONS - Last Filed: 07/28/24 19:54>
[2024-07-28] MEDS: Namenda 5 MG PO SCH (20:01)
--- NOTE | 2024-07-29 05:34 | PCM.NOTE ---
Date and Time: 07/29/24 0533 Subjective Assessment: is a 79 year old female (poor historian) with a chart pmhx of advanced dementia and PE who presented to ED 07/21/24 after she was brought to the ER by law enforcement at her request. Patient has recently moved from [place] with roommate three months ago. Upon arrival she was angry at the roommate for c anceling her doctor appointment. Patient was admitted after exhibiting confused and paranoid behaviors. UA was suspicious for UTI, however culture was negative. Roommate states patient is no longer welcome at her home. During hospitalization, patient continued with abusive and paranoid behaviors. CM was working on [facility] placement -Unfortunately due to insurance she does not qualify for [facility] placement. Patient has met with [facility] mental health provider who recommended - stop xanax, Start risperdal 0.5 BID, change geodon to 10mg IM Q8 PRN for aggression. Then start Trazadone 50mg at HS. Sunday start Aricept 5mg daily. Then Sunday start Namenda 10mg BID. These changes have made noted improvement with patients behavior. Labs and vitals have remained stable. Grandson is picking up patient this week. 07/28/24: Met with patient bedside. Remains pleasantly confused. No complaints this morning. Understands that she is in the hospital and that her grandson is on his way to pick her up but then stated [place]. No reports of aggressive outbursts. Namenda to start today per [facility] recs. Denies fever,cough, sob, cp, abdominal pain, HARGROVE, dizziness, N/V/D. 07/29: Met with patient bedside. Doing well today. Continues to do well with medication changes. Will have to send with hard rx on discharge as pt only has medication coverage in [place]. Plan to DC in the next day or two when grandson arrives. - Review of Systems All Other Systems: Reviewed and Negative Objective Exam General Appearance: no apparent distress Neurologic Exam: alert, cooperative Skin Exam: normal color Wound Assessment: Skin/Wound Assessment Wound/Incision Assessment Start: 07/21/24 22:56 Text: Status: Active Freq: Q6H Protocol: Document 07/29/24 02:00 DEL (Rec: 07/29/24 02:24 DEL [id number]) Wound/Incision Assessment Right Arm Wound Assessment Shift Assessment Wound Type Skin Tear Wound Stage Non Pressure Wound Dressing Status Dry & Intact Drainage Amount None Primary Dressing MEPILEX BORDER DRESSING Left Elbow Wound Assessment Shift Assessment Wound Type Abrasion Wound Stage Non Pressure Wound General Appearance Open to air Eye Exam: PERRL Ears, Nose, Throat Exam: normal ENT inspection Neck Exam: normal inspection Respiratory Exam: normal breath sounds, lungs clear Cardiovascular Exam: regular rate/rhythm, normal heart sounds Gastrointestinal/Abdomen Exam: soft, normal bowel sounds Extremity Exam: normal inspection Back Exam: normal inspection Pelvic Exam: deferred Rectal Exam: deferred Objective Data Vital Signs: Vital Signs - 24 hr Temp Pulse Resp BP Pulse Ox 07/29/24 05:00 98.4 F 57 L 20 145/64 94 L 07/28/24 23:57 98.2 F 67 16 131/60 95 07/28/24 19:20 97.8 F 68 16 127/58 95 07/28/24 16:00 97.7 F 77 18 163/75 96 07/28/24 11:57 98.4 F 69 18 121/58 97 07/28/24 08:00 98.9 F 64 16 109/58 94 L Pain Assessment - Last Documented Pain Intensity 0 Pain Scale Used FLACC Intake and Output: Intake & Output 07/26/24 07/27/24 07/28/24 07/29/24 11:59 11:59 11:59 11:59 Intake Total 189 238 2710 240 Balance 024 873 0212 240 Multi-Disciplinary Progress Notes: Multi-Disciplinary Progress Notes 07/28/24 11:47 Case Management Note by Rebecca Durham S/W SON ALESHA- HE REPORTS HIS SON CAROLE ([phone]) IS FLYING IN 07/30 TO GET PATIENT. THEIR RETURNING FLIGHT IS 08/01. HE IS UNSURE EXACTLY WHAT DATE CAROLE WILL BE HERE TO GET PATIENT D/T UNSURE OF FLIGHT TIME ON 07/30. HE WAS ALSO NOTIFIED OF CLAIMS OF POSSIBLE FINANCIAL ABUSE BY [employer]- HE STATED ALL OF THAT WAS INVESTIGATED AND UNSUPPORTED. S/W SISTER GLORIA- SHE WAS NOTIFIED THAT WE WOULD APPRECIATE HAVING HER PERSONAL BELONGINGS AND HER MEDS BROUGHT IN SO WE CAN MAKE SURE SHE HAS WHAT SHE NEEDS TO GET HER THRU UNTIL SHE IS BACK IN [place]. SHE STATED THAT SANDI PLANNED TO VISIT TODAY AND COULD BRING THEM THEN. I ADVISED GLORIA THAT SANDI SHOULD NOT VISIT PATIENT THIS WILL LIKELY UPSET PATIENT. SHE VERIFIED UNDERSTANDING AND STATED SHE WOULD SEE WHAT THEY COULD ABOUT GETTING HER STUFF UP HERE TO [facility] Initialized on 07/28/24 11:47 - END OF NOTE Assessment/Plan (1) Paranoia Current Visit: Yes Status: Acute Assessment & Plan: -Does not meet criteria for ON-aghp-cifyf per [facility] psych evaluation -[facility] evaluated patient with the following recs: stop xanax, Start risperdal 0.5 BID, change geodon to 10mg IM Q8 PRN for aggression. Tomorrow start Trazadone 50mg at HS. Sunday start Aricept 5mg daily. Then Sunday start Namenda 10mg BID -Remains pleasantly confused, no aggressive outburst per nursing - improved with new medication changes 07/29: -Continues to do well with medication changes, will need hard rx on dc due to insurance Code(s): F22 - DELUSIONAL DISORDERS (2) Advanced dementia Current Visit: Yes Status: Chronic Assessment & Plan: -Namenda/aricept initiated per [facility] recommendations - chronic Code(s): F03.C0 - UNSPECIFIED DEMENTIA, SEVERE, WITHOUT BEH/PSYCH/MOOD/ANX (3) Anticoagulant long-term use Current Visit: Yes Status: Chronic Assessment & Plan: -On Xarelto for PE in LLL diagnosed 06/17/24 at [facility], will continue Code(s): Z79.01 - [facility] (CURRENT) USE OF ANTICOAGULANTS (4) Hyperlipidemia Current Visit: Yes Status: Chronic Assessment & Plan: -Continue Statin Code(s): E78.5 - HYPERLIPIDEMIA, UNSPECIFIED (5) Pulmonary embolism Current Visit: Yes Status: Chronic Qualifiers: Pulmonary embolism type: other Chronicity: chronic Acute cor pulmonale presence: without acute cor pulmonale Qualified Code(s): I27.82 - Chronic pulmonary embolism Assessment & Plan: -Continue Xarelto - see anticoagulant above Code(s): I26.99 - OTHER PULMONARY EMBOLISM WITHOUT ACUTE COR PULMONALE (6) Acute metabolic encephalopathy Current Visit: Yes Status: Resolved Assessment & Plan: -Ruled out - Ucult negative for UTI Code(s): G93.41 - METABOLIC ENCEPHALOPATHY (7) Elevated CK Current Visit: Yes Status: Resolved Assessment & Plan: - 2:2 agitation -Resolved (8) UTI (urinary tract infection) Current Visit: Yes Status: Resolved Assessment & Plan: -Ucult negative Code(s): N39.0 - URINARY TRACT INFECTION, SITE NOT SPECIFIED (9) Nasal bleeding Current Visit: Yes Status: Acute Assessment & Plan: - ice pack PRN - nose bleed x3 07/25 - nose bleed x2 /14 - saline nasal spray added - H&H- trend - stable - no overnight bleeding 07/29: -No further episodes VTE: Xarelto Next of KIN: Sandi Carpio [phone]- Child D/C plan: awaiting grandson to bean picker machine operator pt Code status: Full Code(s): F22 - DELUSIONAL DISORDERS (2) Advanced dementia Current Visit: Yes Status: Chronic Code(s): F03.C0 - UNSPECIFIED DEMENTIA, SEVERE, WITHOUT BEH/PSYCH/MOOD/ANX (3) Anticoagulant long-term use Current Visit: Yes Status: Chronic Code(s): Z79.01 - 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 (CURRENT) USE OF ANTICOAGULANTS (4) Hyperlipidemia Current Visit: Yes Status: Chronic Code(s): E78.5 - HYPERLIPIDEMIA, UNSPECIFIED (5) Pulmonary embolism Current Visit: Yes Status: Chronic Qualifiers: Pulmonary embolism type: other Chronicity: chronic Acute cor pulmonale presence: without acute cor pulmonale Qualified Code(s): I27.82 - Chronic pulmonary embolism Code(s): I26.99 - OTHER PULMONARY EMBOLISM WITHOUT ACUTE COR PULMONALE (6) Acute metabolic encephalopathy Current Visit: Yes Status: Resolved Code(s): G93.41 - METABOLIC ENCEPHALOPATHY (7) Elevated CK Current Visit: Yes Status: Resolved (8) UTI (urinary tract infection) Current Visit: Yes Status: Resolved Code(s): N39.0 - URINARY TRACT INFECTION, SITE NOT SPECIFIED (9) Nasal bleeding Current Visit: Yes Status: Acute Code(s): R04.0 - EPISTAXIS
--- NOTE | 2024-07-30 05:34 | PCM.NOTE ---
Date and Time: 07/30/24 0534 Subjective Assessment: is a 79 year old female (poor historian) with a chart pmhx of advanced dementia and PE who presented to ED 07/21/24 after she was brought to the ER by law enforcement at her request. Patient has recently moved from [place] with roommate three months ago. Upon arrival she was angry at the roommate for c anceling her doctor appointment. Patient was admitted after exhibiting confused and paranoid behaviors. UA was suspicious for UTI, however culture was negative. Roommate states patient is no longer welcome at her home. During hospitalization, patient continued with abusive and paranoid behaviors. CM was working on [facility] placement -Unfortunately due to insurance she does not qualify for [facility] placement. Patient has met with [facility] mental health provider who recommended - stop xanax, Start risperdal 0.5 BID, change geodon to 10mg IM Q8 PRN for aggression. Then start Trazadone 50mg at HS. Sunday start Aricept 5mg daily. Then Sunday start Namenda 10mg BID. These changes have made noted improvement with patients behavior. Labs and vitals have remained stable. Grandson is picking up patient this week. 07/28/24: Met with patient bedside. Remains pleasantly confused. No complaints this morning. Understands that she is in the hospital and that her grandson is on his way to pick her up but then stated [place]. No reports of aggressive outbursts. Namenda to start today per [facility] recs. Denies fever,cough, sob, cp, abdominal pain, [place], dizziness, N/V/D. 07/29: Met with patient bedside. Doing well today. Continues to do well with medication changes. Will have to send with hard rx on discharge as pt only has medication coverage in [place]. Plan to DC in the next day or two when grandson arrives. 07/30: No overnight events noted. Patient remains pleasant, no events of aggressive behaviors noted. Patient to discharge tomorrow with hailey. Three day supply of namenda, proscar, coreg, spironolactone, risperdal, aricept, and trazadone sent to local pharmacy for pickup due to insurance coverage. Will send to rx to [place] pharmacy tomorrow for the remainder of the month supply. - Review of Systems All Other Systems: Reviewed and Negative Objective Exam General Appearance: no apparent distress Neurologic Exam: alert, cooperative, disoriented, confusion Skin Exam: normal color Wound Assessment: Skin/Wound Assessment Wound/Incision Assessment Start: 07/21/24 22:56 Text: Status: Active Freq: Q6H Protocol: Document 07/30/24 02:00 LB (Rec: 07/30/24 02:46 LB [id number]) Wound/Incision Assessment Right Arm Wound Assessment Shift Assessment Wound Type Skin Tear Wound Stage Non Pressure Wound Dressing Status Dry & Intact Drainage Amount None Primary Dressing MEPILEX BORDER DRESSING Left Elbow Wound Assessment Shift Assessment Wound Type Abrasion Wound Stage Non Pressure Wound General Appearance Open to air Wound Photo Photo Taken No Eye Exam: PERRL Ears, Nose, Throat Exam: normal ENT inspection Neck Exam: normal inspection Respiratory Exam: normal breath sounds, lungs clear Cardiovascular Exam: regular rate/rhythm, normal heart sounds Gastrointestinal/Abdomen Exam: soft, normal bowel sounds Extremity Exam: normal inspection Back Exam: normal inspection Pelvic Exam: deferred Rectal Exam: deferred Objective Data Vital Signs: Vital Signs - 24 hr Temp Pulse Resp BP BP Pulse Ox 07/29/24 20:37 99.5 F 82 17 153/86 91 L 07/29/24 17:00 98.4 F 58 L 17 142/65 97 07/29/24 09:00 98.2 F 64 16 132/56 95 Pain Assessment - Last Documented Pain Intensity 0 Pain Scale Used FLACC Intake and Output: Intake & Output 07/27/24 07/28/24 07/29/24 07/30/24 11:59 11:59 11:59 11:59 Intake Total 450 7498 953 1177 Balance 450 8609 039 8792 Multi-Disciplinary Progress Notes: Multi-Disciplinary Progress Notes 07/29/24 15:03 Case Management Note by Rebecca Durham S/W HAILEY LAM- HE PLANS TO BE HERE TO GET PATIENT ON SUNDAY TO GET PATIENT. HE HAS HELP COMING WITH HIM TO GET HER. S/W GLORIA AGAIN- SHE WAS INSTRUCTED TO HAVE [facility] BRING IN PATIENT'S MEDICATIONS SO WE CAN BE SURE SHE HAS WHAT RX SHE NEEDS TO GET THRU UNTIL SHE GETS BACK TO [place]. SHE STATED SHE WOULD CALL [facility]. Initialized on 07/29/24 15:03 - END OF NOTE Assessment/Plan (1) Paranoia Current Visit: Yes Status: Acute Assessment & Plan: -Does not meet criteria for [id number] per [facility] psych evaluation -[facility] evaluated patient with the following recs: stop xanax, Start risperdal 0.5 BID, change geodon to 10mg IM Q8 PRN for aggression. Tomorrow start Trazadone 50mg at HS. Sunday start Aricept 5mg daily. Then Sunday start Namenda 10mg BID -Remains pleasantly confused, no aggressive outburst per nursing - improved with new medication changes 07/29: -Continues to do well with medication changes, will need hard rx on dc due to insurance 07/30: -three day supply of aricept, namenda, risperdol, spironolactone, coreg, and trazadone sent to local pharmacy - to orange picker for pt and have ready for discharge. Will send the remainder of the month to [place] pharmacy. Code(s): F22 - DELUSIONAL DISORDERS (2) Advanced dementia Current Visit: Yes Status: Chronic Assessment & Plan: -Namenda/aricept initiated per [facility] recommendations - chronic Code(s): F03.C0 - UNSPECIFIED DEMENTIA, SEVERE, WITHOUT BEH/PSYCH/MOOD/ANX (3) Anticoagulant long-term use Current Visit: Yes Status: Chronic Assessment & Plan: -On Xarelto for PE in LLL diagnosed 06/17/24 at [facility], will continue Code(s): Z79.01 - LONGTERM (CURRENT) USE OF ANTICOAGULANTS (4) Hyperlipidemia Current Visit: Yes Status: Chronic Assessment & Plan: -Continue Statin Code(s): E78.5 - HYPERLIPIDEMIA, UNSPECIFIED (5) Pulmonary embolism Current Visit: Yes Status: Chronic Qualifiers: Pulmonary embolism type: other Chronicity: chronic Acute cor pulmonale presence: without acute cor pulmonale Qualified Code(s): I27.82 - Chronic pulmonary embolism Assessment & Plan: -Continue Xarelto - see anticoagulant above Code(s): I26.99 - OTHER PULMONARY EMBOLISM WITHOUT ACUTE COR PULMONALE (6) Acute metabolic encephalopathy Current Visit: Yes Status: Resolved Assessment & Plan: -Ruled out - Ucult negative for UTI Code(s): G93.41 - METABOLIC ENCEPHALOPATHY (7) Elevated CK Current Visit: Yes Status: Resolved Assessment & Plan: - 2:2 agitation -Resolved (8) UTI (urinary tract infection) Current Visit: Yes Status: Resolved Assessment & Plan: -Ucult negative Code(s): N39.0 - URINARY TRACT INFECTION, SITE NOT SPECIFIED (9) Nasal bleeding Current Visit: Yes Status: Acute Assessment & Plan: - ice pack PRN - nose bleed x3 07/25 - nose bleed x2 /14 - saline nasal spray added - H&H- trend - stable - no overnight bleeding 07/29: -No further episodes VTE: Xarelto Next of KIN: Kalpana Carpio [phone]- Child D/C plan: awaiting grandson to orange picker pt Code status: Full Code(s): F22 - DELUSIONAL DISORDERS (2) Advanced dementia Current Visit: Yes Status: Chronic Code(s): F03.C0 - UNSPECIFIED DEMENTIA, SEVERE, WITHOUT BEH/PSYCH/MOOD/ANX (3) Anticoagulant long-term use Current Visit: Yes Status: Chronic Code(s): Z79.01 - LONGTERM (CURRENT) USE OF ANTICOAGULANTS (4) Hyperlipidemia Current Visit: Yes Status: Chronic Code(s): E78.5 - HYPERLIPIDEMIA, UNSPECIFIED (5) Pulmonary embolism Current Visit: Yes Status: Chronic Qualifiers: Pulmonary embolism type: other Chronicity: chronic Acute cor pulmonale pr esence: without acute cor pulmonale Qualified Code(s): I27.82 - Chronic pulmonary embolism Code(s): I26.99 - OTHER PULMONARY EMBOLISM WITHOUT ACUTE COR PULMONALE (6) Acute metabolic encephalopathy Current Visit: Yes Status: Resolved Code(s): G93.41 - METABOLIC ENCEPHALOPATHY (7) Elevated CK Current Visit: Yes Status: Resolved (8) UTI (urinary tract infection) Current Visit: Yes Status: Resolved Code(s): N39.0 - URINARY TRACT INFECTION, SITE NOT SPECIFIED (9) Nasal bleeding Current Visit: Yes Status: Acute Code(s): R04.0 - EPISTAXIS
--- NOTE | 2024-07-31 05:20 | PCM.DS ---
Discharge Summary Date of Admission: 07/21/24 22:22 Date of Discharge: 07/31/24 Admitting Physician: LELE BRIZUELA MD Consults: Consults on Case 07/23/24 09:34 Consult,Miriam [Psychiatric Consult] STAT Primary Care Provider: NO FAMILY DOCTOR Allergies Allergies propoxyphene Allergy (Unknown, Verified 07/28/24 09:11) warfarin Allergy (Unknown, Verified 07/28/24 09:11) Rash aspirin Adverse Reaction (Unknown, Verified 07/28/24 09:11) Epistaxis ciprofloxacin Adverse Reaction (Unknown, Verified 07/28/24 09:11) foaming saliva spironolactone Adverse Reaction (Unknown, Verified 07/28/24 09:11) increased hair growth and upset stomach Hospital Summary - Hospital Course Hospital Course: Vincent is a 79 year old female (poor historian) with a chart pmhx of advanced dementia and PE who presented to ED 07/21/24 after she was brought to the ER by law enforcement at her request. Patient has recently moved from [place] with roommate three months ago. Upon arrival she was angry at the roommate for canceling her doctor appointment. Patient was admitted after exhibiting confused and paranoid behaviors. UA was suspicious for UTI, however culture was negative. Roommate states patient is no longer welcome at her home. During hospitalization, patient continued with abusive and paranoid behaviors. CM was working on [facility] placement -Unfortunately due to insurance she does not qualify for [facility] placement. Patient has met with [facility] mental health provider who recommended - stop xanax, Start risperdal 0.5 BID, change geodon to 10mg IM Q8 PRN for aggression. Then start Trazadone 50mg at HS. Sunday start Aricept 5mg daily. Then Sunday start Namenda 10mg BID. These changes have made noted improvement with patients behavior. Labs and vitals have remained stable. Anurag is picking up patient today. 30 day supply of namenda, proscar, coreg, spironolactone, risperdal, aricept, and trazadone sent to local pharmacy for pickup. Discharge Note Latest Assessment & Plan (1) Paranoia Current Visit: Yes Status: Acute Assessment & Plan: -Does not meet criteria for [id number] per [facility] psych evaluation -[facility] evaluated patient with the following recs: stop xanax, Start risperdal 0.5 BID, change geodon to 10mg IM Q8 PRN for aggression. Tomorrow start Trazadone 50mg at HS. Sunday start Aricept 5mg daily. Then Sunday start Namenda 10mg BID -Remains pleasantly confused, no aggressive outburst per nursing - improved with new medication changes 07/29: -Continues to do well with medication changes, will need hard rx on dc due to insurance 07/30: -30 day supply of aricept, namenda, risperdol, spironolactone, coreg, and trazadone sent to local pharmacy - to pickling machine operator for pt and have ready for discharge. Code(s): F22 - DELUSIONAL DISORDERS (2) Advanced dementia Current Visit: Yes Status: Chronic Assessment & Plan: -Namenda/aricept initiated per [facility] recommendations - chronic Code(s): F03.C0 - UNSPECIFIED DEMENTIA, SEVERE, WITHOUT BEH/PSYCH/MOOD/ANX (3) Anticoagulant long-term use Current Visit: Yes Status: Chronic Assessment & Plan: -On Xarelto for PE in LLL diagnosed 06/17/24 at [facility], will continue Code(s): Z79.01 - PENITENTIARY (CURRENT) USE OF ANTICOAGULANTS (4) Hyperlipidemia Current Visit: Yes Status: Chronic Assessment & Plan: -Continue Statin Code(s): E78.5 - HYPERLIPIDEMIA, UNSPECIFIED (5) Pulmonary embolism Current Visit: Yes Status: Chronic Qualifiers: Pulmonary embolism type: other Chronicity: chronic Acute cor pulmonale presence: without acute cor pulmonale Qualified Code(s): I27.82 - Chronic pulmonary embolism Assessment & Plan: -Continue Xarelto - see anticoagulant above Code(s): I26.99 - OTHER PULMONARY EMBOLISM WITHOUT ACUTE COR PULMONALE (6) Acute metabolic encephalopathy Current Visit: Yes Status: Resolved Assessment & Plan: -Ruled out - Ucult negative for UTI Code(s): G93.41 - METABOLIC ENCEPHALOPATHY (7) Elevated CK Current Visit: Yes Status: Resolved Assessment & Plan: - 2:2 agitation -Resolved (8) UTI (urinary tract infection) Current Visit: Yes Status: Resolved Assessment & Plan: -Ucult negative Code(s): N39.0 - URINARY TRACT INFECTION, SITE NOT SPECIFIED (9) Nasal bleeding Current Visit: Yes Status: Acute Assessment & Plan: - ice pack PRN - nose bleed x3 07/25 - nose bleed / - saline nasal spray added - H&H- trend - stable - no overnight bleeding 07/29: -No further episodes VTE: Xarelto Next of KIN: Sandi Carpio [phone]- Child D/C plan: awaiting grandson to pickling machine operator pt Code status: Full Code(s): F22 - DELUSIONAL DISORDERS I spent 35 minutes [id number] with the patient on the day of discharge performing discharge exam, discussing hospital stay and discharge instructions with patient and caregivers, preparation of discharge records, prescriptions & referral forms and addressing any questions/concerns the patient had as documented above. - Vitals & Intake/Output Vital Signs: Vital Signs Temperature 97.8 F 07/31/24 05:00 Pulse Rate 59 L 07/31/24 05:00 Respiratory Rate 16 07/31/24 05:00 Blood Pressure 110/53 07/31/24 05:00 O2 Sat by Pulse Oximetry 97 07/31/24 05:00 Intake & Output: Intake & Output 07/28/24 07/29/24 07/30/24 07/31/24 11:59 11:59 11:59 11:59 Intake Total 9177 202 8995 600 Balance 9042 915 8798 600 - Lab Result Diagrams: 07/27/24 07:45 07/25/24 06:36 Micro Results-Entire Visit: Microbiology 07/21/24 16:24 Urine Culture - Final Clean Catch Midstream MIXED TRIP; 3 OR MORE TYPES. NO PREDOMINANT ORGANISM. NO FURTHER WORKUP. PLEASE RESUBMIT IF CLINICALLY INDICATED. Discharge Exam General Appearance: no apparent distress Neurologic Exam: alert, cooperative, disoriented, confusion Eye Exam: PERRL Ears, Nose, Throat Exam: normal ENT inspection Neck Exam: normal inspection Respiratory Exam: normal breath sounds, lungs clear Cardiovascular Exam: regular rate/rhythm, normal heart sounds Gastrointestinal/Abdomen Exam: soft, normal bowel sounds Pelvic Exam: deferred Rectal Exam: deferred Back Exam: normal inspection Extremity Exam: normal inspection Skin Exam: normal color Wound Assessment: Skin/Wound Assessment Wound/Incision Assessment Start: 07/21/24 22:56 Text: Status: Active Freq: Q6 Protocol: Document 07/31/24 02:00 MS (Rec: 07/31/24 04:31 MS [id number]) Wound/Incision Assessment Right Arm Wound Assessment Shift Assessment Wound Type Skin Tear Wound Stage Non Pressure Wound Dressing Status Dry & Intact Drainage Amount None Primary Dressing MEPILEX BORDER DRESSING Comment clean, dry, and intact Left Elbow Wound Assessment Shift Assessment Wound Type Abrasion Wound Stage Non Pressure Wound General Appearance Open to air Wound Photo Photo Taken No Final Diagnosis/Problem List - Final Discharge Diagnosis/Problem (1) Paranoia Current Visit: Yes Status: Chronic Code(s): F22 - DELUSIONAL DISORDERS (2) Advanced dementia Current Visit: Yes Status: Chronic Code(s): F03.C0 - UNSPECIFIED DEMENTIA, SEVERE, WITHOUT BEH/PSYCH/MOOD/ANX (3) Anticoagulant long-term use Current Visit: Yes Status: Chronic Code(s): Z79.01 - PENITENTIARY (CURRENT) USE OF ANTICOAGULANTS (4) Hyperlipidemia Current Visit: Yes Status: Chronic Code(s): E78.5 - HYPERLIPIDEMIA, UNSPECIFIED (5) Pulmonary embolism Current Visit: Yes Status: Chronic Code(s): I26.99 - OTHER PULMONARY EMBOLISM WITHOUT ACUTE COR PULMONALE (6) Acute metabolic encephalopathy Current Visit: Yes Status: Resolved Code(s): G93.41 - METABOLIC ENCEPHALOPATHY (7) Elevated CK Current Visit: Yes Status: Resolved (8) UTI (urinary tract infection) Current Visit: Yes Status: Resolved Code(s): N39.0 - URINARY TRACT INFECTION, SITE NOT SPECIFIED (9) Nasal bleeding Current Visit: Yes Status: Acute Code(s): R04.0 - EPISTAXIS - Discharge Disposition: Home, Self-Care Condition: Stable Prescriptions: New Spironolactone 25 mg [Aldactone 25 MG] 50 mg PO DAILY 3 Days #6 tablet Donepezil HCl [Aricept] 5 mg PO DAILY 3 Days #3 tablet Carvedilol 12.5 mg [Coreg 12.5 mg] 12.5 mg PO BID 3 Days #6 tablet Trazodone HCl 50 mg [Desyrel 50 mg] 50 mg PO QHS 3 Days #3 tablet Memantine HCl 10 mg PO BID 3 Days #6 tablet Finasteride 5 mg [Proscar 5 MG] 5 mg PO DAILY 3 Days #3 tablet Risperidone 1 mg [Risperdal 1 MG] 0.5 mg PO BID 3 Days #3 tablet Donepezil HCl 10 mg [Aricept 10 MG] 5 mg PO DAILY tablet Continue Rivaroxaban [Xarelto] 20 mg PO DAILY Atorvastatin Calcium 40 mg PO DAILY Progesterone, Micronized [Progesterone] 100 mg PO DAILY Discontinued Spironolactone 25 mg [Aldactone 25 MG] 50 mg PO DAILY Finasteride 5 mg [Proscar 5 MG] 5 mg PO DAILY ALPRAZolam 0.25 MG [xanAX 0.25 MG] 0.25 mg PO BID PRN PRN Reason: Anxiety Instructions: Dementia (including Alzheimer disease), Carvedilol, Donepezil, Finasteride, Memantine, Risperidone, Trazodone Follow up with: DOCTOR,NO FAMILY [Primary Care Provider] - Call for Appointment Forms: Discharge Instructions
[2024-07-31 14:53] VITALS: BP 141/75; PULSE 69; RESP 20; TEMP 98.3; O2SAT 95
== END 2024-07-31 15:37 | disposition home or self-care (01) ==
LOC: ED 16:12 → MED SURG 22:22
PROVIDERS: ADMIT Internal Medicine; ATTEND Internal Medicine
DX: F22 Delusional disorders (principal); F03.C0 Unspecified dementia, severe, without behavioral disturbance, psychotic disturbance, mood disturbance, and anxiety; Z79.01 Long term (current) use of anticoagulants; E78.5 Hyperlipidemia, unspecified; I27.82 Chronic pulmonary embolism; I26.99 Other pulmonary embolism without acute cor pulmonale; G93.41 Metabolic encephalopathy; R74.8 Abnormal levels of other serum enzymes; N39.0 Urinary tract infection, site not specified; R04.0 Epistaxis; K59.00 Constipation, unspecified; Z79.899 Other long term (current) drug therapy
CPT/HCPCS: 36000; 36415; 70450; 80053; 80143; 80179; 80307; 81001; 82077; 82550; 83036; 84134; 84484; 85014; 85018; 85025; 85027; 87086; 90791; 93005; 96365; 96374; 96376; 99285; Q3014; G0378; J0696; J2060; J3486; A9270-GY